=== PATIENT | female | born 1965 | race Caucasian/White ===

== ENCOUNTER → 2016-09-01 21:01 | Emergency (ER) | payer MEDICARE, OTHER ==
--- NOTE | ~2016-09-01 | EKG ---
PATIENT: DAVID PA UNIT #: [id number] Ventricular Rate: 71 BPM Atrial Rate: 71 BPM P-R Interval: 150 ms QRS Duration: 80 ms Q-T Interval: 408 ms QTC Calculation(Bezet): 443 ms P [place]: 28 degrees Calculated R [place]: 6 degrees Calculated T [place]: 14 degrees Diagnosis Line: Normal sinus rhythm Diagnosis Line: Normal ECG Diagnosis Line: No previous ECGs available Diagnosis Line: Confirmed by MARIA D PEREYRA MD ([id number]) on 09/02/2016 Diagnosis Line: 8:07:14 PM INTERPRETING MD: HAFSA MERCER
[~2016-09-01 21:01] MED LIST: A/T/S 2% GEL30 GM TOP; ACETAMINOPHEN PO; ACTIFED; APAP PO; AUGMENTIN PO; BACTRIM DS TABL1 TA1 PO; BACTRIM DS TABL1 TAB; BACTRIM DS TABL1 TAB PO; BIRTH CONTROL PILL; BIRTH CONTROL PILL PO; BUTALB PO; CAFF PO; CELEBREX PO; CELEXA PO; CIPRO PO; CLARITIN10 MG PO; DARVOCET-N 1001 TAB PO; DEPO-PROVER150 MG/ML INJ; FLAGYL PO; GLYCOPYRROLATE2 MG PO; KLOR-CON PO; NEXIUM PO; PERCOCET PO; PERCOCET10 PO; PHENERGAN PO; PHENERGAN PR; PHENERGAN25 MG PO; PRILOSEC PO; PYRIDIUM PO; STOMACH PILL; TAGAMET PO; TYLENOL; TYLOX 5/500 CAP1 CAP PO; VICODIN 5/500 T1 TAB PO; VICODIN PO; VOLTAREN75 MG PO; ZOFRAN8 MG PO; [UNRECOGNIZED DRUG - REMARK]
== END | disposition left against medical advice (07) ==
LOC: CED 21:01
DX: Z53.21 Procedure and treatment not carried out due to patient leaving prior to being seen by health care provider (principal)
CPT/HCPCS: 93005